=== PATIENT | male | born 1950 | race Caucasian/White ===

== ENCOUNTER → 2019-10-07 | Outpatient (CLI) | payer MEDICARE, OTHER ==
[~2019-10-07] MED LIST: ISOVUE-370 76% 100ML VIAL As Ordered ONE
--- NOTE | 2019-10-19 15:47 | REP ---
CT CHEST WITH INTRAVENOUSLY (IV) CONTRAST HISTORY: Other nonspecific abnormal finding of the lung field. No comparison study. CT CONTRAST DOSE: 75 mL of intravenous [id number]. CT FINDINGS: Preliminary digital back end developer radiograph is unremarkable. There is good opacification of the pulmonary arterial tree. There is no CT evidence of pulmonary embolus. No evidence of thoracic aortic aneurysm or dissection. The aorta is somewhat tortuous. There is no pleural or pericardial effusion. There is evidence of a hepatic hemangioma in the right lobe of the liver measuring approximately 3 cm. No adrenal abnormality is observed. The visualized upper abdominal structures are otherwise unremarkable. There are granulomatous lymph node calcifications in the right paratracheal and right hilar region. Calcific pleural plaquing is visible along the left posterior chest wall. There is eventration of the posterior aspect of the left diaphragm. There is some mild linear fibrosis in the lung bases bilaterally. In the right lower lobe medially, there is an oval-shaped benign pleural-based nodule measuring 3.0 x 1.5 x 2.4 cm. This is densely and centrally calcified consistent with a granuloma or conceivably a large calcified pleural plaque. It is felt to have a benign appearance. No other significant pulmonary infiltrate, nodule, or opacification. No endobronchial abnormality is appreciated. No bony destructive lesion. IMPRESSION: No active cardiopulmonary disease. Benign densely calcified pleural-based nodule right lower lobe. Granuloma versus hamartoma versus atypical calcific pleural plaque. There is calcific pleural plaquing elsewhere. There is a low density lesion consistent with a cyst in the right thyroid lobe. This measures 2.5 cm. MTDD
== END ==
LOC: M RAD 08:36
PROVIDERS: ATTEND Internal Medicine Pulmonary Disease
DX: R91.8 Other nonspecific abnormal finding of lung field (principal); J84.10 Pulmonary fibrosis, unspecified
CPT/HCPCS: 71260; Q9967